=== PATIENT | male | born 1970 | race Caucasian/White ===

== ENCOUNTER → 2017-01-09 15:26 | Outpatient (CLI) | payer OTHER ==
[2013-04-12 09:29] VITALS: BMI 24.4
[~2017-01-09 15:26] MED LIST: FLEXERIL10 MG PO; NORCO 10/325 TA1 TA1 PO; PHENERGAN25 M1 PO; Z-QUIL PO
== END | disposition home or self-care (01) ==
LOC: D.CT 15:26
DX: R31.0 Gross hematuria (principal); R10.9 Unspecified abdominal pain